=== PATIENT | female | born 1980 | race African-American/Black ===

== ENCOUNTER 2018-04-30 01:40 | Emergency (ER) | payer OTHER ==
[~2018-04-30] VITALS: Ht 154.9 cm; Wt 76.7 kg
[~2018-04-30 01:40] MED LIST: ACCUNEB1.25 MG/3; ADVAIR 100-501 EACH INH; ADVAIR 250-501 EACH INH; ADVAIR 500-501 EACH; ADVAIR 500-501 EACH IH; ADVAIR 500-501 EACH INH; ADVAIR HFA 230M12 GM INH; ADVAIR HFA115 MCG/21 INH; ALBUTEROL INH; ALBUTEROL INHAL17 GM IH; ALBUTEROL NEB; ALBUTEROL2.5 MG/0.5; ALBUTEROL2.5 MG/0.5 INH; ALBUTEROL2.5 MG/31 INH; ALBUTEROL2.5 MG/32; ATIVAN0.5 MG PO; ATIVAN1 MG PO; AUGMENTIN 875-1 EACH PO; AZITHROMYCIN 2250 MG PO; CELEXA20 MG PO; CLARITIN10 M2; CLARITIN10 MG PO; COMBIVENT INH; CYCLOBENZAPRINE5 MG PO; DELTASONE20 MG PO; DOXYCYCLINE 10100 MG PO; DUONEB 2.5-0.5 M3 ML INH; FIORICET 50-321 EACH; FLONASE 0.05%50 MCG NASAL; HYDROCODON-ACE1 EAC7 PO; KEFLEX500 MG PO; LORATIDINE 10 M10 M1 PO; LORAZEPAM 22 MG/1 ML; MEDROL DOSPAK21 TAB PO; MEDROLDOSEPACK PO; NORCO 5-325 TA1 EACH PO; PHENERGAN-CODE120 ML PO; PHENTERMINE H37.5 MG; PREDNISONE 10 M10 MG PO; PREDNISONE 20 M20 M1 PO; PREDNISONE 20 M20 MG PO; PREDNISONE50 MG PO; PROAIR HFA8.5 GM IH; PROAIR HFA8.5 GM PO; PROMETHAZINE-D120 ML PO; PROVENTIL HFA6.7 G1 INH; PROVENTIL IH; PROVENTIL INH; SINGULAIR 10 MG10 M1 PO; STERAPRED DS10 MG PO; ULTRACET TABLE1 EACH PO; VENTOLIN HFA 1818 GM; VENTOLIN HFA 1818 GM INH; VENTOLIN17 GM INH; VIBRAMYCIN 100100 M2; VIOS AEROSOL D1 EACH; XANAX 0.25 MG0.25 MG PO; ZANTAC 150MG T150 M1 PO; ZPAK PO; ZYRTEC10 M2 PO
[2018-04-30 02:57] LABS: CALCIUM 9.1 mg/dL (8.5-10.1); CREATININE 0.8 mg/dL (0.6-1.0); POTASSIUM 4.1 mmol/L (3.5-5.1)
[2018-04-30] MEDS ORDERED: AZITHROMYCIN 2250 MG PO (03:55)
[2018-04-30] MEDS ORDERED: PREDNISONE 20 M20 MG PO (03:55)
== END 2018-04-30 04:20 | disposition home or self-care (01) ==
LOC: ER 01:40
PROVIDERS: Emergency Medicine
DX: J18.9 Pneumonia, unspecified organism (principal); J45.909 Unspecified asthma, uncomplicated; F41.9 Anxiety disorder, unspecified; Z88.8 Allergy status to other drugs, medicaments and biological substances